=== PATIENT | female | born 2005 | race Caucasian/White ===

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

== ENCOUNTER → 2025-06-18 | Outpatient (CLI) | payer OTHER ==
[~2025-06-18] MED LIST changes: +FLUO-365 PO; -FLUO20CA22 PO
[2025-06-18 17:50] LABS: ESTIMATED AVERAGE GLUCOSE 91.0 MG/DL (60-110)
[2025-06-18 17:51] LABS: FREE T4 1.05 NG/DL (0.83-1.43); PROLACTIN 7.69 NG/ML
== END ==
LOC: M PLALAB 15:12
PROVIDERS: ATTEND Nurse Practitioner Family
DX: N92.6 Irregular menstruation, unspecified (principal); R10.9 Unspecified abdominal pain